=== PATIENT | female | born 1990 | race Two or more races ===

== ENCOUNTER 2019-09-08 10:38 | Emergency (ER) | payer MEDICAID ==
[~2019-09-08] VITALS: Ht 167.6 cm; Wt 68.0 kg
[2019-09-08 10:44] VITALS: BP 107/75
--- NOTE | 2019-09-08 11:13 | NUR ---
SEEN AND EXAMINED BY .
--- NOTE | 2019-09-08 11:22 | NUR ---
Patient discharged to home in stable condition. Written and verbal after care instructions given. Patient verbalizes understanding of instruction.
== END 2019-09-08 11:23 | disposition home or self-care (01) ==
LOC: ER 10:38
DX: O26.891 Other specified pregnancy related conditions, first trimester (principal); H66.92 Otitis media, unspecified, left ear; Z3A.12 12 weeks gestation of pregnancy